=== PATIENT | female | born 1990 | race Caucasian/White ===

== ENCOUNTER 2019-01-01 22:18 | Emergency (ER) | payer MEDICAID ==
[~2019-01-01] VITALS: Ht 170.2 cm; Wt 99.1 kg
[~2019-01-01 22:18] MED LIST: CHLO25CA10 PO; METH4TAB81 PO; NORCO10T PO; ONDA4TAB6 PO; ONDA8TAB13 PO; PANT-47 PO; PANT20TA3 PO; SUCR1ORA2 PO
[2019-01-01 22:33] VITALS: BP 156/81
[2019-01-01] MEDS ORDERED: orphenadrine citrate 60mg/2ml inj. IM ONE (23:00)
[2019-01-01] MEDS ORDERED: ketorolac tromethamine 15mg/ml inj. IM ONE (23:00)
[2019-01-01] MEDS ORDERED: METH-360 PO (23:32)
[2019-01-01] MEDS ORDERED: IBUP-1985 PO (23:32)
== END 2019-01-01 23:48 | disposition home or self-care (01) ==
LOC: ER 22:19
DX: M54.5 Low back pain (principal); G89.29 Other chronic pain; Z90.49 Acquired absence of other specified parts of digestive tract; Z98.890 Other specified postprocedural states; Z79.899 Other long term (current) drug therapy
CPT/HCPCS: 96372; 99283; J1885; J2360

== ENCOUNTER 2020-12-10 13:50 | Emergency (ER) | payer MEDICAID ==
[~2020-12-10] VITALS: Ht 170.2 cm; Wt 108.2 kg
[~2020-12-10 13:50] MED LIST changes: +BISA-155 PO; +IBUP-1985 PO; +METH-360 PO; +ONDA8TAB6 PO; +PANT20TA18 PO; -PANT20TA3 PO
[2020-12-10] MEDS ORDERED: ondansetron/PF 4mg/2ml inj IV ONE (15:50)
[2020-12-10] MEDS ORDERED: normal saline 1000ML IV soln IVB ONE (15:50)
[2020-12-10 16:19] LABS: BASOPHILS % (AUTO) 0.4 % (0-1); EOSINOPHILS # (AUTO) 0.1 X10'3 (0-0.9); EOSINOPHILS % (AUTO) 1.2 % (0-6); HEMATOCRIT 45.5 % (35.0-45.0); HEMOGLOBIN 15.6 g/dl (12.0-16.0); LYMPHOCYTES # (AUTO) 1.1 X10'3 (1.1-4.8); LYMPHOCYTES % (AUTO) 13.3 % (21-51); MEAN CORPUSCULAR HEMOGLOBIN 30.6 PG (27.0-31.0); MEAN CORPUSCULAR HGB CONC 34.3 g/dL (33.0-36.5); MEAN CORPUSCULAR VOLUME 89.2 FL (78-98); MONOCYTES # (AUTO) 1.1 X10'3 (0-0.9); MONOCYTES % (AUTO) 13.9 % (2-12); NEUTROPHILS # (AUTO) 5.8 X10'3 (1.8-7.7); NEUTROPHILS % (AUTO) 71.2 % (42-75); PLATELET COUNT 266 X10'3 (140-440); RED CELL DISTRIBUTION WIDTH 12.8 % (11.5-14.5); WHITE BLOOD COUNT 8.2 X10'3 (4.5-11.0)
[2020-12-10 16:35] LABS: URINE HCG NEGATIVE (NEG)
[2020-12-10 16:37] LABS: ALANINE AMINOTRANSFERASE 19 U/L (12-78); ALBUMIN 3.3 G/DL (3.4-5.0); ALBUMIN/GLOBULIN RATIO 0.8 (1.1-1.5); ALKALINE PHOSPHATASE 75 IU/L (46-116); ANION GAP 18 (8-16); ASPARTATE AMINO TRANSFERASE 13 U/L (10-37); BILIRUBIN,TOTAL 0.5 MG/DL (0.1-1.0); BLOOD UREA NITROGEN 7 MG/DL (7-18); BUN/CREATININE RATIO 7.6 (6.6-38.0); CALCIUM 8.8 MG/DL (8.5-10.1); CHLORIDE 98 MMOL/L (99-107); CREATININE 0.92 MG/DL (0.40-0.90); GLUCOSE 94 MG/DL (70-104); LIPASE 476 U/L (73-393); SODIUM 134 MMOL/L (135-145); TOTAL CARBON DIOXIDE 18.2 MMOL/L (24-32); TOTAL PROTEIN 7.2 G/DL (6.4-8.2); eGFR 71 ML/MIN
[2020-12-10 16:44] LABS: POTASSIUM 2.6 MMOL/L (3.5-5.1)
[2020-12-10] MEDS ORDERED: potassium Cl 10 mEq/100mL bag IV ONE (16:50)
[2020-12-10] MEDS ORDERED: potassium Cl 20 mEq SR tablet PO ONE (16:50)
[2020-12-10] MEDS ORDERED: ONDA4TAB6 PO (16:56)
[2020-12-10] MEDS ORDERED: POTA-82 PO (17:59)
[2020-12-10 18:25] VITALS: BP 101/70
== END 2020-12-10 18:52 | disposition home or self-care (01) ==
LOC: ER 13:50
DX: E87.6 Hypokalemia (principal); R11.2 Nausea with vomiting, unspecified; K85.90 Acute pancreatitis without necrosis or infection, unspecified; G89.29 Other chronic pain; Z90.49 Acquired absence of other specified parts of digestive tract; Z90.89 Acquired absence of other organs; Z98.890 Other specified postprocedural states; Z79.899 Other long term (current) drug therapy
CPT/HCPCS: 36415; 80053; 81025; 83690; 85025; 93005; 96361; 96365; 96375; 99284; J2405; J3480; J7030

== ENCOUNTER 2020-12-20 13:29 | Emergency (ER) | payer MEDICAID ==
[~2020-12-20] VITALS: Ht 167.6 cm; Wt 102.4 kg
[~2020-12-20 13:29] MED LIST changes: +POTA-82 PO
[2020-12-20] MEDS ORDERED: normal saline 1000ml 1,000 ML IV ONE (15:35)
[2020-12-20] MEDS ORDERED: ondansetron/PF 4mg/2ml inj IV ONE (15:35)
[2020-12-20 16:01] LABS: BASOPHILS % (AUTO) 0.3 % (0-1); EOSINOPHILS # (AUTO) 0.1 X10'3 (0-0.9); HEMATOCRIT 49.9 % (35.0-45.0); HEMOGLOBIN 16.4 g/dl (12.0-16.0); LYMPHOCYTES # (AUTO) 1.3 X10'3 (1.1-4.8); LYMPHOCYTES % (AUTO) 17.9 % (21-51); MEAN CORPUSCULAR HEMOGLOBIN 30.4 PG (27.0-31.0); MEAN CORPUSCULAR HGB CONC 32.8 g/dL (33.0-36.5); MEAN CORPUSCULAR VOLUME 92.8 FL (78-98); MEAN PLATELET VOLUME 9.2 FL (7.4-10.4); MONOCYTES # (AUTO) 0.9 X10'3 (0-0.9); NEUTROPHILS # (AUTO) 4.9 X10'3 (1.8-7.7); NEUTROPHILS % (AUTO) 68.8 % (42-75); PLATELET COUNT 203 X10'3 (140-440); RED BLOOD COUNT 5.38 X10'6 (4.20-5.60); RED CELL DISTRIBUTION WIDTH 13.6 % (11.5-14.5); WHITE BLOOD COUNT 7.1 X10'3 (4.5-11.0)
[2020-12-20 16:02] LABS: URINE HCG NEGATIVE (NEG)
[2020-12-20 16:05] LABS: CLARITY,URINE CLOUDY (Clear); COLOR,URINE YELLOW (Yellow); GLUCOSE, URINE NEGATIVE (Neg); KETONES,URINE >=80 mg/dl (Neg); LEUKOCYTE ESTERASE ,URINE NEGATIVE (Neg); NITRITES, URINE NEGATIVE (Neg); OCCULT BLOOD,URINE LARGE (Neg); PROTEIN,URINE 100 mg/dl (Neg); UA COLLECTION TYPE CLN CATCH MIDSTREAM
[2020-12-20 16:14] LABS: RBC,URINE 20-50 /HPF (0-2)
[2020-12-20 16:15] LABS: BACTERIA,URINE 1+ /HPF (Neg); MUCUS STRANDS FEW /LPF (Neg); SQUAMOUS EPITHELIAL CELL,UR MODERATE /LPF (FEW)
[2020-12-20 16:16] LABS: CELLULAR CAST 0-4 /LPF (NEGATIVE)
[2020-12-20 16:18] LABS: COARSE GRANULAR CAST 0-3 /LPF (NEGATIVE)
[2020-12-20 16:25] LABS: ALANINE AMINOTRANSFERASE 34 U/L (12-78); ALBUMIN 3.2 G/DL (3.4-5.0); ALBUMIN/GLOBULIN RATIO 0.8 (1.1-1.5); ALKALINE PHOSPHATASE 79 IU/L (46-116); ANION GAP 19 (8-16); ASPARTATE AMINO TRANSFERASE 33 U/L (10-37); BILIRUBIN,TOTAL 0.5 MG/DL (0.1-1.0); BLOOD UREA NITROGEN 4 MG/DL (7-18); BUN/CREATININE RATIO 4.3 (6.6-38.0); CHLORIDE 100 MMOL/L (99-107); CREATININE 0.94 MG/DL (0.40-0.90); GLUCOSE 81 MG/DL (70-104); LIPASE 467 U/L (73-393); POTASSIUM 3.3 MMOL/L (3.5-5.1); SODIUM 140 MMOL/L (135-145); TOTAL CARBON DIOXIDE 20.7 MMOL/L (24-32); TOTAL PROTEIN 7.1 G/DL (6.4-8.2); eGFR 69 ML/MIN
[2020-12-20] MEDS ORDERED: iohexol 300mg/ml 100ml inj. ONE (17:15)
[2020-12-20] MEDS ORDERED: DOCU-171 PO (18:16)
[2020-12-20] MEDS ORDERED: POLY119P2 PO (18:16)
[2020-12-20] MEDS ORDERED: FAMO-128 PO (18:16)
[2020-12-20 18:31] VITALS: BP 105/63
== END 2020-12-20 18:32 | disposition home or self-care (01) ==
LOC: ER 13:29
DX: R10.84 Generalized abdominal pain (principal); R11.2 Nausea with vomiting, unspecified; E87.6 Hypokalemia; G89.29 Other chronic pain; Z90.49 Acquired absence of other specified parts of digestive tract; Z90.89 Acquired absence of other organs; Z98.890 Other specified postprocedural states; Z79.899 Other long term (current) drug therapy
CPT/HCPCS: 36415; 74177; 80053; 81001; 81025; 83690; 85025; 87088; 96361; 96374; 99285; J2405; J7030; Q9967

== ENCOUNTER 2023-04-05 12:14 | Emergency (ER) | payer MEDICAID ==
[~2023-04-05] VITALS: Ht 167.6 cm; Wt 56.8 kg
[~2023-04-05 12:14] MED LIST changes: +DOCU-171 PO; +FAMO-128 PO; +POLY119P2 PO; +POTA-366 PO; -POTA-82 PO
[2023-04-05 12:58] LABS: URINE HCG NEGATIVE (NEG)
[2023-04-05 13:05] LABS: CLARITY,URINE SLIGHTLY CLOUDY (Clear); COLOR,URINE YELLOW (Yellow); GLUCOSE, URINE NEGATIVE (Neg); KETONES,URINE NEGATIVE (Neg); LEUKOCYTE ESTERASE ,URINE NEGATIVE (Neg); NITRITES, URINE NEGATIVE (Neg); OCCULT BLOOD,URINE NEGATIVE (Neg); PH,URINE 5.5 (4.8-8.0); PROTEIN,URINE NEGATIVE (Neg); UROBILINOGEN,URINE 0.2 E.U/dL (0.2-1.0)
[2023-04-05 13:08] LABS: BASOPHILS % (AUTO) 0.4 % (0-1); EOSINOPHILS # (AUTO) 0.1 X10'3 (0-0.9); HEMATOCRIT 45.3 % (35.0-45.0); LYMPHOCYTES # (AUTO) 1.3 X10'3 (1.1-4.8); LYMPHOCYTES % (AUTO) 21.7 % (21-51); MEAN CORPUSCULAR HEMOGLOBIN 32.3 PG (27.0-31.0); MEAN CORPUSCULAR HGB CONC 33.1 g/dL (33.0-36.5); MEAN CORPUSCULAR VOLUME 97.8 FL (78-98); MEAN PLATELET VOLUME 8.1 FL (7.4-10.4); MONOCYTES # (AUTO) 0.5 X10'3 (0-0.9); MONOCYTES % (AUTO) 8.2 % (2-12); NEUTROPHILS # (AUTO) 4.1 X10'3 (1.8-7.7); NEUTROPHILS % (AUTO) 68.7 % (42-75); PLATELET COUNT 211 X10'3 (140-440); RED BLOOD COUNT 4.63 X10'6 (4.20-5.60); RED CELL DISTRIBUTION WIDTH 13.8 % (11.5-14.5)
[2023-04-05 13:25] LABS: ALANINE AMINOTRANSFERASE 18 U/L (12-78); ALBUMIN 3.9 G/DL (3.4-5.0); ALBUMIN/GLOBULIN RATIO 1.2 (1.1-1.5); ALKALINE PHOSPHATASE 69 IU/L (46-116); ANION GAP 8 (8-16); ASPARTATE AMINO TRANSFERASE 16 U/L (10-37); BILIRUBIN,TOTAL 0.7 MG/DL (0.1-1.0); BLOOD UREA NITROGEN 11 MG/DL (7-18); BUN/CREATININE RATIO 13.1 (10.0-20.0); CALCIUM 9.1 MG/DL (8.5-10.1); CHLORIDE 107 MMOL/L (99-107); CREATININE 0.84 MG/DL (0.40-0.90); GLUCOSE 95 MG/DL (70-104); LIPASE 155 U/L (73-393); POTASSIUM 3.9 MMOL/L (3.5-5.1); SODIUM 142 MMOL/L (135-145); TOTAL CARBON DIOXIDE 27.4 MMOL/L (24-32); TOTAL PROTEIN 7.2 G/DL (6.4-8.2); eGFR 78 ML/MIN
[2023-04-05 13:28] LABS: UA COLLECTION TYPE CLN CATCH MIDSTREAM
[2023-04-05 13:29] LABS: BACTERIA,URINE 1+ /HPF (Neg); MUCUS STRANDS FEW /LPF (Neg); SQUAMOUS EPITHELIAL CELL,UR MANY /LPF (FEW)
[2023-04-05 13:30] LABS: RBC,URINE 0-2 /HPF (0-2); WBC,URINE 0-4 /HPF (0-4)
[2023-04-05 14:39] VITALS: BP 110/70
[2023-04-05] MEDS ORDERED: normal saline 1000ML IV soln IVB ONE (14:45)
[2023-04-05] MEDS ORDERED: ketorolac trometh. 30mg/ml inj. IV ONE (14:45)
[2023-04-05] MEDS ORDERED: ondansetron/PF 4mg/2ml inj IV ONE (14:45)
[2023-04-05] MEDS ORDERED: NAPR-56 PO (15:44)
[2023-04-05] MEDS ORDERED: OXYC-145 PO (15:44)
[2023-04-05] MEDS ORDERED: oxyCODONE/APAP 5-325mg tablet PO ONE (15:45)
== END 2023-04-05 16:03 | disposition home or self-care (01) ==
LOC: ER 12:14
DX: N83.201 Unspecified ovarian cyst, right side (principal); Z98.890 Other specified postprocedural states
CPT/HCPCS: 36415; 76830; 76856; 80053; 81001; 81025; 83690; 85025; 93976; 96374; 96375; 99285; J1885; J2405; J7030